=== PATIENT | female | born 1995 | race Caucasian/White ===

== ENCOUNTER 2018-04-08 06:15 | Day surgery (SDC) | payer OTHER ==
[~2018-04-08] VITALS: Ht 165.1 cm; Wt 95.7 kg
[~2018-04-08 06:15] MED LIST: CRUTCH3 USE; HYDACE5 PO
== END 2018-04-08 09:30 | disposition home or self-care (01) ==
LOC: ORSCSDS 06:15
PROVIDERS: Orthopaedic Surgery
PROC: 0SBD4ZZ Excision of Left Knee Joint, Percutaneous Endoscopic Approach (ICD-10-PCS; principal; 2018-04-08 07:30)
DX: S83.282D Other tear of lateral meniscus, current injury, left knee, subsequent encounter (principal)
CPT/HCPCS: J0690; J1100; J1885; J2250; J2405; J3010; J7120

== ENCOUNTER 2020-07-14 23:36 | Emergency (ER) | payer OTHER ==
[~2020-07-14] VITALS: Ht 165.1 cm; Wt 95.2 kg
[2020-07-15 00:33] LABS: Source, Urine Clean Catch
[2020-07-15 00:35] LABS: Bilirubin, Urine Neg (Neg); Blood, Urine 5+ (Neg); Glucose Qualitative, Urine Neg (Neg); Ketones, Urine Neg (Neg); Leukocyte Esterase, Urine Neg (Neg); Nitrite, Urine Neg (Neg); Protein, Urine Neg (Neg); Specific Gravity, Urine 1.005 (1.003-1.022); Urobilinogen, Urine NORM (Normal)
[2020-07-15 00:36] LABS: Appearance, Urine Clear (Clear); Color, Urine Yellow (P-Yellow)
[2020-07-15 00:52] LABS: Bacteria Not Seen /hpf; Red Blood Cells, Urine 0-2 /hpf (0-2); Squamous Epithelial Cells Few /hpf (Few); White Blood Cells, Urine Rare /hpf (0-5)
[2020-07-15 00:53] LABS: BASOPHILS ABSOLUTE AUTO 0.05 K/mm3 (0.00-0.23); BASOPHILS PERCENT AUTO 1 % (0-2); EOSINOPHILS ABSOLUTE AUTO 0.18 K/mm3 (0.00-0.68); EOSINOPHILS PERCENT AUTO 2 % (0-6); Hematocrit 43.4 % (33.0-51.0); Hemoglobin 13.8 g/dL (11.5-16.0); IMMATURE GRAN ABSOLUTE AUTO 0.04 K/mm3 (0.00-0.10); IMMATURE GRAN PERCENT AUTO 0 % (0-1); LYMPHOCYTES ABSOLUTE AUTO 2.77 K/mm3 (0.84-5.20); LYMPHOCYTES PERCENT AUTO 26 % (21-46); MONOCYTES ABSOLUTE AUTO 0.87 K/mm3 (0.16-1.47); MONOCYTES PERCENT AUTO 8 % (4-13); Mean Corpuscular HGB 27.5 pg (26.0-34.0); Mean Corpuscular HGB Conc 31.8 g/dL (31.5-36.5); Mean Corpuscular Volume 87 fL (80-100); Mean Platelet Volume 9.1 fL (9.1-12.4); NEUTROPHILS ABSOLUTE AUTO 6.59 K/mm3 (1.96-9.15); NEUTROPHILS PERCENT AUTO 63 % (41-73); Platelet Count 363 K/mm3 (150-400); RDW Coefficient Variation 12.7 % (11.7-14.2); Red Blood Cell Count 5.01 M/mm3 (3.80-5.20)
[2020-07-15 01:13] LABS: Alanine Aminotransfer (ALT/SGP 24 U/L (12-78); Alk Phos 82 U/L (50-136); Anion Gap 5 mmol/L (6-16); Aspartate Aminotrans (AST/SGOT 14 U/L (12-37); Bilirubin, Total 0.2 mg/dL (0.1-1.0); Blood Urea Nitrogen 16 mg/dL (8-24); Bun/Creatinine Ratio 20.4 (12.0-20.0); CO2, Blood 29 mmol/L (21-32); Calcium, Blood 8.9 mg/dL (8.5-10.1); Chloride, Blood 107 mmol/L (98-108); Creatinine, Blood 0.79 mg/dL (0.40-1.00); Glomerular Filtration Rate >60 (60-); Glucose, Blood 71 mg/dL (70-99); Magnesium, Blood 2.4 mg/dL (1.6-2.4); Potassium, Blood 3.7 mmol/L (3.5-5.5); Sodium, Blood 141 mmol/L (136-145)
== END 2020-07-15 01:39 | disposition home or self-care (01) ==
LOC: ER 23:36
PROVIDERS: Physician Assistant
DX: M62.838 Other muscle spasm (principal)
CPT/HCPCS: 36415; 80053; 81001; 83735; 85025; 99283

== ENCOUNTER → 2020-12-31 | Outpatient (CLI) | payer OTHER | LOC: LAB SHORT 07:34 → LAB 07:34 | DX: D48.5 Neoplasm of uncertain behavior of skin (principal) | CPT/HCPCS: 88305 ==